=== PATIENT | female | born 1995 | race Caucasian/White ===

== ENCOUNTER 2017-11-07 10:11 | Inpatient (IN) | payer BC, OTHER ==
[~2017-11-07] VITALS: Ht 162.6 cm; Wt 53.1 kg
[~2017-11-07 10:11] MED LIST: ASCO250T5 PO; Baclofen PO; CLON0.1T14 PO; DICY20TA28 PO; DIPH50CA37 PO; FERR325T28 PO; HYDR-3895 PO; Ibuprofen PO; PREG25CA PO
--- NOTE | 2017-11-08 23:30 | NUR ---
Intake Assessment Assessment done at intake office. Patient is alert & oriented x4. Pt is ambulatory with a steady gait. Speech is clear and audible. Pt presented with flushed skin, anxious/irritable mood, fine tremors, clammy/moist skin & reports very mild headache. Pt appears mildly intoxicated. Vitals taken immediately B/P 119/70, CO 73, RR 18, Temp 96.3, O2Sat 98%. She reports that she is here to detox off from Alcohol/Xanax/Heroin. Pt reports allergies to Coconut. COWS 4 CIWA 12. Explained to pt unit protocols regarding destruction of any controlled substances brought to facility and handling of all medications. Pt is coherent and is able to sign consent & verbalized understanding. Dr. Torres aware of pt's admission. Will continue admission process when pt arrives in the unit.
[2017-11-08 23:45] VITALS: BP 119/70
[2017-11-08] MEDS ORDERED: MAG HYDROX/AL HYDROX/SIMETH 30 ML LIQUID UDC PO PRN (23:45)
[2017-11-08] MEDS ORDERED: NICOTINE POLACRILEX 4 MG GUM-PK OF TEN BC PRN (23:45)
[2017-11-08] MEDS ORDERED: MIRALAX 17 GM POWD.PACK PO PRN (23:45)
[2017-11-08] MEDS ORDERED: BUPRENORPHINE HCL 2 MG TAB.SUBL SL PRN (23:45)
[2017-11-08] MEDS ORDERED: NICOTINE 14 MG/24HR PATCH TD PRN (23:45)
[2017-11-08] MEDS ORDERED: LOPERAMIDE HCL 2 MG CAPSULE PO PRN ×2 (23:45)
[2017-11-08] MEDS ORDERED: diphenhydrAMINE 50 MG CAPSULE PO PRN (23:45)
[2017-11-08] MEDS ORDERED: THIAMINE HCL 200 MG/2 ML VIAL IM ONE (23:45)
[2017-11-08] MEDS ORDERED: LORAZEPAM 1 MG TABLET PO PRN (23:45)
[2017-11-08] MEDS ORDERED: LORAZEPAM 2 MG/1 ML VIAL IM PRN (23:45)
--- NOTE | 2017-11-08 23:45 | NUR ---
ADMISSION NOTE: Patient is a 22 y.o female admitted at [facility] Unit at approximately 2340pm of 11/08/17 for medically supervised withdrawal from Alcohol/Xanax/Heroin. Body search done and skin check performed, no contraband found. Skin noted noted with trackmarks on bilateral arms. Pt is 5'4" tall and weighs 117 lbs in a standing scale. Pt is cooperative during assessment. Patient is oriented to floor unit and room. Patient follows a regular diet with reported allergies to Coconut. Pt wishes to be full Code. Patient is alert & oriented x4, ambulatory with a steady gait. Speech is clear and audible. Pt presented with flushed skin, anxious/irritable mood, fine tremors, clammy/moist skin & reports very mild headache. Pt is cooperative during interview. No shortness of breath noted. Respiration even & unlabored. Abdomen soft & non-distended. Bowel sounds active in all four quadrants. Last bowel noted was today 11/08/17. Pt denies any nausea/vomiting. No chest pain noted. COWS 4 CIWA 12 noted. Patient noted with past medical history of Anxiety, Depression, Hepatitis C, Asthma, PTSD, & Insomnia. Pt denies any hx of suicide attempt. Pt currently denies SI/HI. Pt was able to provide urine sample for drug screen upon admission and is voiding clear yellow urine with no problems. Substance use: 1. ETOH- Pt has been drinking since 11 years old. Pt reports that she relapsed 6 months ago and started drinking on a daily basis, she reports drinking 1 pint of Vodka/whiskey daily. Pt consumed an unknown amount on the day of admission 11/08/17. 2. Xanax- Pt has been using Xanax since she was 11 years old. Pt reported that she relapsed 6 months ago and started taking on a daily basis, she reports taking 5-10mg of Xanax daily. Pt last consumed 2mg on the day of admission. 3. Heroin- Pt has been using IV Heroin since she was 16 years old. Pt reports that she relapsed 6 months ago and started using IV Heroin on a daily basis, she reports using 1.0-1.5 grams daily. Pt last consumed 0.5grams IV Heroin prior to admission. 4. Marijuana- Pt smokes on a daily basis. Pt reports smoking 1/8th of marijuana. Last consumed an unknown amount on the day of admission. Treatment History: Pt had been to multiple detox treatment (pt unable to recall all of them) -[facility] in [place] -[facility] in [place] -[facility] in [facility] -[facility](September 2016) Patient denies being hospitalized in the last 30 days. Pt longest period of sobriety is 6 months in February-August of 2015. Patient smokes 20 cigarettes daily. Patient refused to get Flu and Pneumonia Vaccine. Explained risk and benefits but still refused. Patient denies having a PCP. Urine drug screen came back positive for Opiates & Cannabinoids. Fall & Seizure precautions are in place. All needs attended & met. Safety precautions are in place. Bed locked in lowest position. Both side rails padded & up. Call light within pt's reach. Will continue to monitor.
[2017-11-09 01:30] LABS: *AMPHETAMINE, URINE NEGATIVE (NEGATIVE); *BARBITURATE, URINE NEGATIVE (NEGATIVE); *CANNABINOID, URINE POSITIVE (NEGATIVE); *COCCAINE, URINE NEGATIVE (NEGATIVE); *OPIATE, URINE POSITIVE (NEGATIVE); *PHENCYCLIDINE SCREEN,URINE NEGATIVE (NEGATIVE)
[2017-11-09 01:34] LABS: *URINE HCG, QUAL NEGATIVE (NEGATIVE)
--- NOTE | 2017-11-09 01:37 | NUR ---
PRN Ativan Patient appears anxious and irritable. Pt noted with fine tremors and reports mild headache. Pt appears restless in bed. Vitals noted WNL. CIWA 12 noted at this time. PRN Ativan 2mg administered as ordered. Will monitor for effectiveness of medication.
--- NOTE | 2017-11-09 02:37 | NUR ---
PRN Reassessment Pt verbalized decreased in anxiety and agitation after medication administration. Pt also reported relief from headache. Pt appears more calm. Safety measures in place. Will continue to monitor patient.
[2017-11-09 04:00] VITALS: BP 103/56
--- NOTE | 2017-11-09 07:10 | NUR ---
End of Shift Note: Pt admitted last night for medically supervised withdrawal form ETOH/Benzo/Opiates. Pt to be started on a 5-day Ativan & and 5-day Subutex taper. Pt is stilla sleep at this time and is easily arousable. Pt received PRN Ativan 2mg @ 0137 for s/s of withdrawal and was effective. Last COWS 4 CIWA 12 noted. Continue to closely monitor signs and symptoms of withdrawal. Vitals noted WNL. Pt slept for a total of 5 hours. Fluid intake: 750 ml. Voided 1x with no bowel movement during my shift. Encourage pt to increase fluid intake for rehydration as tolerated. All needs attended. Safety measures in place. Will endorse to day shift nurse.
--- NOTE | 2017-11-09 07:30 | NUR ---
Start of Shift Notes: Received patient in her room. Awake, alert and verbally responsive. Oriented x 4. Able to make her needs known. Patient states "I feel like shit, I'm so nauseated." Educated patient on her current medication regimen and reassured patient that staff will keep her comfortable as much as possible. Patient was able to be redirected. Encouraged oral fluid intake and encouraged group participation to learn new skills to prevent relapse. Patient is a 22 year old female admitted for opiate and BZO withdrawal who will be placed on a 5-day Subutex and 5-day Ativan taper as ordered. Labs to be drawn. PRN Ativan 2 mg PO given during the night. Last . Slept for 5 hours. Will continue to monitor.
[2017-11-09 08:00] VITALS: BP 141/91
[2017-11-09] MEDS: BUPRENORPHINE HCL 2 MG TAB.SUBL SL SCH ×4 (09:00→23:10)
[2017-11-09] MEDS ORDERED: TUBERCULIN,PURIF.PROT.DERIV. 5 TU/0.1 ML TEST ID ONE (09:00)
[2017-11-09] MEDS: LACTOBACILLUS RHAMNOSUS GG 1 EACH CAPSULE PO SCH ×2 (09:21→20:19)
[2017-11-09] MEDS: METHOCARBAMOL 750 MG TABLET PO PRN ×2 (09:21→20:20)
[2017-11-09] MEDS: DICYCLOMINE HCL 20 MG TABLET PO PRN ×2 (09:21→20:20)
[2017-11-09] MEDS: LORAZEPAM 1 MG TABLET PO SCH ×4 (09:21→20:20)
[2017-11-09] MEDS: ONDANSETRON ODT 4 MG TAB.RAPDIS SL PRN ×2 (09:21→20:20)
[2017-11-09] MEDS: THIAMINE HCL 100 MG TABLET PO SCH (09:21)
[2017-11-09] MEDS: IBUPROFEN 600 MG TABLET PO PRN ×2 (09:21→16:21)
[2017-11-09] MEDS: FOLIC ACID 1 MG TABLET PO SCH (09:21)
[2017-11-09] MEDS: MULTIVITAMINS,THERAPEUTIC TABLET PO SCH (09:21)
[2017-11-09] MEDS: DOXYCYCLINE HYCLATE 100 MG TABLET PO SCH ×2 (09:21→20:20)
[2017-11-09] MEDS: CLONIDINE HCL 0.1 MG TABLET PO PRN ×2 (09:23→20:20)
--- NOTE | 2017-11-09 09:23 | NUR ---
Bentyl 20mg/Clonidine 0.1mg/Motrin 600mg/Robaxin 750 mg PO given: Patient's COWS 14/CIWA 14, patient presented with anxiety/agitation, restless legs, chills, hot flashes, sweating, gross tremors, 78/10 myalgia, nausea and abdominal cramping. Patient was encouraged to take Subutex 4 mg SL as ordered due to her symptoms. Patient states that she was still not ready since she does not want to get sick. Educated patient on the risk and benefits of taking Subutex put patient still refused. Medicated patient with Bentyl/Clonidine/Motrin/Robaxin as ordered. Notified MD and charge nurse of patient's refusal of Subutex. Will encourage to take 1 more time and continue to educate the patient. Will monitor for effectiveness.
--- NOTE | 2017-11-09 10:00 | NUR ---
Subutex 4 mg SL refused: Patient was offered to receive Subutex 4 mg SL as ordered, but patient still refused. COWS 14. Educated patient on the risk and benefits but patient still refused. Notified Dr. Torres. Will monitor.
--- NOTE | 2017-11-09 10:23 | NUR ---
Re-assessment: Zofran/Clonidine/Bentyl/Robaxin and Motrin Patient verbalizes relief from nausea, myalgia PL is now 3/10, and abdominal cramping ceased. BP 125/81. PRN Clonidine, Zofran, Robaxin and Motrin was effective.
[2017-11-09 11:26] LABS: BASOPHILS % (AUTO) 0.8 % (0.0-2.0); EOSINOPHILS # (AUTO) 0.2 K/uL (0.0-0.7); EOSINOPHILS % (AUTO) 3.4 % (0.0-7.0); HEMATOCRIT 40.5 % (31.2-41.9); HEMOGLOBIN 13.4 g/dL (10.9-14.3); LYMPHOCYTES # (AUTO) 1.6 K/uL (20.0-40.0); LYMPHOCYTES % (AUTO) 30.1 % (20.5-51.5); MEAN CORPUSCULAR HEMOGLOBIN 27.6 uug (24.7-32.8); MEAN CORPUSCULAR HGB CONC 33 g/dL (32.3-35.6); MEAN CORPUSCULAR VOLUME 83.3 fL (75.5-95.3); MONOCYTES # (AUTO) 0.5 K/uL (2.0-10.0); MONOCYTES % (AUTO) 9.5 % (0.0-11.0); NEUTROPHILS # (AUTO) 3.1 K/uL (1.8-8.9); NEUTROPHILS % (AUTO) 56.2 % (38.5-71.5); PLATELET COUNT (AUTO) 174 K/uL (179-408); RED BLOOD CELL COUNT(AUTO) 4.86 MIL/uL (3.63-4.92); WHITE BLOOD COUNT (AUTO) 5.5 K/uL (3.8-11.8)
[2017-11-09 11:27] LABS: BILIRUBIN,TOTAL 0.7 mg/dL (0.2-1.0); CREATININE 0.9 mg/dL (0.6-1.3); POTASSIUM 4.3 mmol/L (3.5-5.1); TOTAL PROTEIN, SERUM 6.6 g/dL (6.4-8.2)
[2017-11-09 12:00] VITALS: BP 108/57
--- NOTE | 2017-11-09 13:59 | NUR ---
Subutex 4 mg SL not administered: COWS 12, patient continues to refuse Subutex 4 mg SL at this time. Patient stated "I will let you know when I need it. Don't worry." Patient was reassured not to let herself wait too long to get sicker. All needs met and attended. Will continue to encourage to take. MD Torres made aware.
[2017-11-09 16:00] VITALS: BP 94/49
--- NOTE | 2017-11-09 16:21 | NUR ---
Motrin 600mg PO given: Patient complained of 6/10 pain to her lower legs and lower back related to her withdrawal symptoms. Heat packs offered but refused. Medicated patient with Motrin 600 mg PO as ordered. Will monitor for effectiveness.
--- NOTE | 2017-11-09 17:08 | NUR ---
Therapist prompted client to attend daily group session. Client responded by stating that she would attend if she was feeling well enough to go.
--- NOTE | 2017-11-09 17:21 | NUR ---
Re-assessment: Motrin Per patient, PRN Motrin was effective in reducing patient's lower back and leg pain. PL 3.
--- NOTE | 2017-11-09 17:59 | NUR ---
Subutex 4 mg SL at 1700 not administered: Patient continues to refuse Subutex 4 mg at this time. COWS 14, but patient still refuses to take. Patient continues to refuse and states "I'm still not ready, I'll try to see how I feel later and let you know." Patient was reassured that meds are available as soon as she needs it and continue to encourage patient to take meds. MD aware of patient's refusal to take Subutex. Will monitor closely.
--- NOTE | 2017-11-09 19:15 | NUR ---
Start of Shift Note: Endorsement received from day shift nurse. Received patient alert & oriented to name, place and situation. Patient appears with flat affect, anxious and irritable mood, flushed, teary eyed and diaphoretic. Pt is disheveled and looks unkempt. Room observed to be messy with unfolded clothes on table and bed. Pt presented with sweating, chills, restlessness, 8/10 generalized body aches, stuffy nose, reports nausea/vomiting, moderate headache. Pt is on Ativan taper and is tolerating taper well. Pt still has not started her Subutex taper, per pt she is not ready yet. Last COWS 14 CIWA 12. Pt received PRN Bentyl, Clonidine, Motrin x2, & Zofran during day shift and were effective per report. Encourage to increase fluid intake. Pt educated current plan of care for the night and medication regimen. Will continue to monitor patient.
--- NOTE | 2017-11-09 19:21 | NUR ---
End of Shift Notes: Patient initiated her 5-day Ativan and her 5-day Subutex taper as ordered to manage withdrawal symptoms related to opiate and BZOs. She is tolerating current taper well. No adverse reactions noted. VS monitored closely. No significant abnormalities noted. Withdrawal symptoms were closely monitored. Initial COWS 14/CIWA 14, patient presented with nausea, abdominal cramping, anxiety/agitation, sweats, chills, hot flashes, fatigue. PRN Clonidine, Bentyl, Motrin and Robaxin was given at 0857 with help after 1 hour. At 1621, patient was given Motrin as ordered for lower back and lower leg pain with help after 1 hour. Encouraged to attend group and participate in activities due to self isolation. Consuming 50% for breakfast and lunch and refused dinner meal. Snacks offered and patient has been snacking all day. Encouraged healthy diet while in detox. Patient was unable to participate in group and activities due to her withdrawal symptoms. Last COWS 14/CIWA 12. Refused Subutex 4 mg SL at 0900, 1300 and 1700 due to patient's fear of having precipitated withdrawals. Education was provided at all times to keep patient reassured. All needs met and attended. Call light in reach. Will continue to monitor.
[2017-11-09 20:00] VITALS: BP_SYST 117; BP_DIAS 64; BP_DIAS 76
[2017-11-09] MEDS: GABAPENTIN 300 MG CAPSULE PO SCH (20:20)
--- NOTE | 2017-11-09 20:20 | NUR ---
PRN Administration Patient presented with anxiety, sweating, chills, stomach cramps, reports 7/10 generalized body aches, & nausea with episodes of vomiting. PRN Zofran 4mg SL, Bentyl 20mg, Clonidine 0.1 and Robaxin administered as ordered. Will monitor for effectiveness of medication.
--- NOTE | 2017-11-09 21:00 | NUR ---
Pt requested to take Subutex at a later time. Per pt, she is not ready to take it yet. Pt presented with anxiety, fine tremors, goosebumps, nausea/vomiting, sweating, chills, dilated pupils, restlessness & stomach cramps. COWS 17 noted. Explained to pt benefits of taking Subutex but pt still refused to take it as scheduled. Will continue to monitor patient.
[2017-11-09] MEDS: ONDANSETRON 4 MG/2 ML VIAL IM PRN (21:19)
--- NOTE | 2017-11-09 21:19 | NUR ---
PRN Zofran IM Zofran SL ineffective. Patient noted with another episode of vomiting. PRN Zofran 4mg IM administered as ordered on right deltoid with no adverse reactions noted. Will monitor for effectiveness of medication.
--- NOTE | 2017-11-09 21:20 | NUR ---
PRN Reassessment Pt verbalized decreased in pain from 7/10 to 5/10, relief from stomach cramps & decreased in sweating & chills. Zofran was not effective. Pt still nauseous and noted with another episode of vomiting. Safety measures in place. Will continue to monitor patient.
--- NOTE | 2017-11-09 21:49 | NUR ---
PRN Zofran Reassessment Patient verbalized improved nausea and vomiting ceased after medication administration. Safety measures in place. Encourage pt to increase fluid intake. Will continue to monitor patient.
[2017-11-09 23:10] VITALS: BP 108/63
[2017-11-09] MEDS: HYDROXYZINE PAMOATE 25 MG CAPSULE PO PRN (23:10)
--- NOTE | 2017-11-09 23:10 | NUR ---
PRN Benadryl & Vistaril Patient is anxious and is unable to fall asleep. PRN Benadryl & Vistaril administered as ordered. Will monitor for effectiveness of medication.
[2017-11-09] MEDS ORDERED: QUET100T PO (23:19)
[2017-11-09] MEDS ORDERED: ASPI1TAB2 PO (23:19)
--- NOTE | 2017-11-10 00:10 | NUR ---
PRN Reassessment Pt asleep at this time and appears comfortable. Safety measures in place. Will continue to monitor.
[2017-11-10 04:00] VITALS: BP 89/53
--- NOTE | 2017-11-10 07:06 | NUR ---
End of Shift Note: Pt still asleep at this time but easily arousable. Pt remains alert & oriented x4. Pt on Ativan taper and tolerating well, she started Subutex taper last night with no adverse reactions noted. Pt received PRN Zofran SL, Bentyl, Clonidine, Robaxin, Zofran IM, Benadryl & Vistaril and were effective. Last COWS 11 CIWA 11 noted. Continue to closely monitor signs and symptoms of withdrawal. Vitals noted WNL. Pt slept for a total of 6 hours. Fluid intake: 1592 ml. Voided 1x with no bowel movement during my shift. Encourage pt to increase fluid intake for rehydration as tolerated. All needs attended. Safety measures in place. Will endorse to day shift nurse.
--- NOTE | 2017-11-10 07:14 | NUR ---
Start of Shift Notes: Received patient in her room. Laying in bed with eyes closed. Easily arousable. Alert and verbally responsive. Oriented x 4. Able to make her needs known. Educated patient on her current medication regimen and reassured patient that staff will keep her comfortable as much as possible. Patient was able to be redirected. Encouraged oral fluid intake and encouraged group participation to learn new skills to prevent relapse. Patient is a 22 year old female admitted for opiate and BZO withdrawal who was placed on a 5-day Subutex and 5-day Ativan taper as ordered. Subutex taper was started at HS. PRN Bentyl, Clonidine, Robaxin, Zofran IM and SL, and Benadryl waws given during the night. Slept for 6 hours. Last /. Will continue to monitor.
[2017-11-10 08:00] VITALS: BP 99/68
[2017-11-10] MEDS: ONDANSETRON ODT 4 MG TAB.RAPDIS SL PRN ×2 (08:41→20:18)
[2017-11-10] MEDS: METHOCARBAMOL 750 MG TABLET PO PRN ×2 (08:42→17:14)
[2017-11-10] MEDS: LACTOBACILLUS RHAMNOSUS GG 1 EACH CAPSULE PO SCH ×2 (08:42→20:19)
[2017-11-10] MEDS: LORAZEPAM 1 MG TABLET PO SCH ×3 (08:42→20:19)
[2017-11-10] MEDS: MULTIVITAMINS,THERAPEUTIC TABLET PO SCH (08:42)
--- NOTE | 2017-11-10 08:42 | NUR ---
Bentyl 20 mg PO/Robaxin 750 mg/Zofran 4 mg ODT given: Patient noted with complain of 6/10 stomach cramps, nausea, and myalgia related to s.s of withdrawal. Medicated patient with Bentyl 20 mg PO, Robaxin 750 mg PO and Zofran 4 mg ODT as ordered. Will monitor for effectiveness. COWS 20/CIWA 14. Ativan and Subutex taper given as ordered.
[2017-11-10] MEDS: DICYCLOMINE HCL 20 MG TABLET PO PRN (08:43)
[2017-11-10] MEDS: FOLIC ACID 1 MG TABLET PO SCH (08:43)
[2017-11-10] MEDS: BUPRENORPHINE HCL 2 MG TAB.SUBL SL SCH ×3 (08:43→20:18)
[2017-11-10] MEDS: THIAMINE HCL 100 MG TABLET PO SCH (08:43)
[2017-11-10] MEDS: DOXYCYCLINE HYCLATE 100 MG TABLET PO SCH ×2 (08:43→20:19)
[2017-11-10] MEDS: GABAPENTIN 300 MG CAPSULE PO SCH ×3 (08:43→20:19)
--- NOTE | 2017-11-10 09:42 | NUR ---
Re-assessment: Bentyl/Robaxin/Zofran Per patient, PRN Zofran was effective in relieving nausea. PL from abdominal cramps and myalgia 11/24. PRN Bentyl/Zofran and Robaxin were effective.
[2017-11-10 11:06] LABS: HEPATITIS B SURFACE AG Negative (Negative)
[2017-11-10 12:00] VITALS: BP 105/61
--- NOTE | 2017-11-10 12:08 | NUR ---
Client was prompted to attend group therapy. Client stated she would make an effort to attend.
[2017-11-10] MEDS ORDERED: BUPRENORPHINE HCL 2 MG TAB.SUBL SL PRN (12:15)
[2017-11-10] MEDS: LORAZEPAM 1 MG TABLET PO PRN ×2 (12:37→22:34)
--- NOTE | 2017-11-10 12:37 | NUR ---
Subutex 4 mg SL PRN/Ativan 1 mg PO given: COWS 16/CIWA 12, patient appears very uncomfortable. Noted with restlessness, chills, hot flashes, sweating, anxiety, and agitation. PRN Subutex 4 mg SL given for COWS score 16 and Ativan 1 mg PO PRN given for CIWA 12. Will monitor for effectiveness.
--- NOTE | 2017-11-10 13:07 | NUR ---
Re-assessment: Subutex 4 mg SL COWS 11, relief from runny nose noted, less sweating, less anxiety noted. PRN Subutex effective in reducing patient's withdrawal symptoms.
--- NOTE | 2017-11-10 13:37 | NUR ---
Re-assessment: Ativan 1 mg CIWA 10, less anxiety/agitation, sweats and tremors noted. PRN Ativan 1 mg PO was effective in reducing patient's withdrawal symptoms.
[2017-11-10] MEDS: BACLOFEN 10 MG TABLET PO SCH ×2 (15:10→20:19)
[2017-11-10] MEDS: DICYCLOMINE HCL 20 MG TABLET PO SCH ×2 (15:10→20:19)
[2017-11-10 16:00] VITALS: BP 119/81
[2017-11-10] MEDS: IBUPROFEN 600 MG TABLET PO PRN (17:14)
[2017-11-10] MEDS: ONDANSETRON 4 MG/2 ML VIAL IM PRN (17:14)
--- NOTE | 2017-11-10 17:14 | NUR ---
Zofran 4 mg IM/Robaxin 750mg/Motrin PO given: Patient noted with x 3 episodes of vomiting. No diarrhea noted. Also noted with complain of 6/10 pain to lower legs. Non-pharmacological interventions provided but ineffective. Medicated patient with Zofran 4 mg IM, Robaxin 750 mg PO and Motrin as ordered. Will monitor for effectiveness.
--- NOTE | 2017-11-10 17:44 | NUR ---
Re-assessment: Kayla NAJERA/MD Communication Patient continues to complain of nausea and with x 2 episode of emesis after drinking water. Reported to charge nurse and charge nurse notified Dr. Torres. Awaiting for reply.
--- NOTE | 2017-11-10 18:00 | NUR ---
New Orders: New orders received from MD. Patient will be started on IV D5 1/2 NS at 125 cc/hr x 8 hours hydration and IV Protonix as ordered.
--- NOTE | 2017-11-10 18:45 | NUR ---
IV line insertion: IV line to patient's right upper arm obtained by Roderick from the ER. Patient tolerated procedure well. IV line inserted utilizing 23g via aseptic technique. Tourniquet released and secured IV site with tape. IV site to right upper arm patent and intact. Flushing well with good blood return.
[2017-11-10] MEDS: PANTOPRAZOLE SODIUM 40 MG VIAL IV SCH (18:59)
--- NOTE | 2017-11-10 19:06 | NUR ---
End of Shift Notes: Patient initiated her 5-day Ativan and her 5-day Subutex taper as ordered to manage withdrawal symptoms related to opiate and BZOs. She is tolerating current taper well. No adverse reactions noted. VS monitored closely. No significant abnormalities noted. Withdrawal symptoms were closely monitored. Initial COWS 20/CIWA 14, patient presented with nausea, abdominal cramping, anxiety/agitation, sweats, chills, hot flashes, fatigue. PRN Bentyl, Robaxin and Zofran was given at 0842 with help after 1 hour. Medicated patient with PRN Subutex 4 mg and Ativan 1 mg PO at 1237 for breakthrough withdraweal symptoms with help. At 1714, patient was noted with x [address] episodes of vomiting [address] PL 6/10 to lower legs, medicated patient with Zofran 4 mg IM, Robaxin and Motrin as ordered. Meds adjusted by MD Rahman today. IV line to patient's right upper arm inserted. Patient will be started on D5 1/2 NS at 125cc/hr x 8 hours for hydration. Appetite is poor, consuming 25% of meals and unable to tolerate PO fluids at times. Snacks offered and provided. Encouraged to attend group and participate in activities due to self isolation. . Encouraged healthy diet while in detox. Patient was unable to participate in group and activities due to her withdrawal symptoms. Last COWS /CIWA 14. Per patient, Ativan and Subutex has been effective in reducing her withdrawal symptoms. All needs met and attended. Call light in reach. Will continue to monitor.
[2017-11-10] MEDS: IV D5 1/2 NS 1000 ML 1,000 ML IV PRN (19:07)
--- NOTE | 2017-11-10 19:15 | NUR ---
Start of Shift Note: Endorsement received from day shift nurse. Received patient alert & oriented to name, place and situation. Patient continues to appear with a flat affect, flushed, & anxious and irritable mood. Pt started on IV hydration of D5 1/2 NS @ 125 cc/hr. Pt continues to have nausea but no episode of vomiting noted at this time. Pt is disheveled and looks unkempt. Room observed to be messy with unfolded clothes on table and bed. Pt presented with sweating, chills, restlessness, 8/10 generalized body aches, stomach cramps, stuffy nose, & moderate headache. Pt is on Ativan taper & Subutex taper and is tolerating taper well. No adverse reactions noted. Last COWS 12 CIWA 14. Pt received PRN Bentyl, Robaxin x2, Zofran x2, Ativan, Subutex & Motrin during day shift and were effective per report. Pt educated current plan of care for the night and medication regimen. Will continue to monitor patient.
[2017-11-10 20:00] VITALS: BP 114/67
[2017-11-10] MEDS: ACETAMINOPHEN 325 MG TABLET PO PRN (20:19)
--- NOTE | 2017-11-10 20:19 | NUR ---
PRN Zofran & Tylenol Patient complained of moderate headache and nausea. No episode of vomiting noted at this time. PRN Zofran SL & Tylenol administered as ordered. Will monitor for effectiveness of medication.
[2017-11-10] MEDS: QUETIAPINE FUMARATE 100 MG TABLET PO SCH (20:20)
--- NOTE | 2017-11-10 21:19 | NUR ---
PRN Reassessment Patient verbalized relief from headache and improved nausea after medication administration. Safety measures in place. Will continue to monitor patient.
--- NOTE | 2017-11-10 22:34 | NUR ---
PRN Ativan Patient presented with anxious/irritable mood, fine tremors, moist/clammy skin and nausea. CIWA 11 noted at this time. Vitals WNL. PRN Ativan administered as ordered. Will monitor for effectiveness of medication.
--- NOTE | 2017-11-10 23:34 | NUR ---
PRN Reassessment Patient verbalized decreased in anxiety & agitation. Patient more calm & comfortable in bed. Pt still noted with slight nausea. Safety measures in place. Will continue to monitor patient.
[2017-11-11] VITALS (7 sets, daily range): BP systolic 90–128; BP diastolic 58–79
[2017-11-11] MEDS: IV D5 1/2 NS 1000 ML 1,000 ML IV PRN (04:53)
--- NOTE | 2017-11-11 07:02 | NUR ---
End of Shift Note: Pt still asleep at this time but easily arousable. Pt remains alert & oriented x4. Pt on Ativan & Subutex taper and tolerating well. Pt continues on IV hydartion D5 1/2 NS @ 125 cc/hr. Pt still noted with intermittent nausea with no episode of vomiting noted. Pt received PRN Zofran SL for nausea, Tylenol for headache and Ativan for increased anxiety and were effective. Last COWS 10 CIWA 11 noted. Continue to closely monitor signs and symptoms of withdrawal. Vitals noted WNL. Pt slept for a total of 6 hours. Fluid intake: 1092 ml. Voided 1x with no bowel movement during my shift. All needs attended. Safety measures in place. Will endorse to day shift nurse.
--- NOTE | 2017-11-11 07:36 | NUR ---
Start of shift- Pt admitted for opiate and ETOH dependence. PMH- Hep C+, anxiety, depression, PTSD, asthma and insomnia. Pt asleep at this time but easily arousable to name. Pt on 5 day Ativan & Subutex taper and tolerating well. Pt continues on IV hydration D5 1/2 NS @ 125 cc/hr. IV #22 foreign right upper arm. Pt still noted with intermittent nausea with no episode of vomiting noted. Last night Pt received PRN Zofran SL for nausea, Tylenol for headache and Ativan for increased anxiety and were effective. At 2330 last COWS 10 CIWA 11 noted. Pt slept for a total of 6 hours. Pt reports FULL CODE, allergy to coconut. All safety measures in place. Will continue to closely monitor signs and symptoms of withdrawal.
[2017-11-11] MEDS ORDERED: LORAZEPAM 1 MG TABLET PO SCH ×2 (09:00→21:00)
[2017-11-11] MEDS ORDERED: BUPRENORPHINE HCL 2 MG TAB.SUBL SL SCH (09:00)
[2017-11-11] MEDS: PANTOPRAZOLE SODIUM 40 MG VIAL IV SCH (09:25)
[2017-11-11] MEDS: GABAPENTIN 300 MG CAPSULE PO SCH ×3 (09:25→20:52)
[2017-11-11] MEDS: DICYCLOMINE HCL 20 MG TABLET PO SCH ×3 (09:25→20:52)
[2017-11-11] MEDS: THIAMINE HCL 100 MG TABLET PO SCH (09:25)
[2017-11-11] MEDS: FOLIC ACID 1 MG TABLET PO SCH (09:25)
[2017-11-11] MEDS: MULTIVITAMINS,THERAPEUTIC TABLET PO SCH (09:25)
[2017-11-11] MEDS: BACLOFEN 10 MG TABLET PO SCH (09:26)
[2017-11-11] MEDS: DOXYCYCLINE HYCLATE 100 MG TABLET PO SCH ×2 (09:26→20:52)
[2017-11-11] MEDS: LACTOBACILLUS RHAMNOSUS GG 1 EACH CAPSULE PO SCH ×2 (09:26→20:52)
[2017-11-11 09:58] LABS: BASOPHILS # (AUTO) 0.1 K/uL (0.0-8.0); EOSINOPHILS # (AUTO) 0.1 K/uL (0.0-0.7); EOSINOPHILS % (AUTO) 1.8 % (0.0-7.0); HEMATOCRIT 40.5 % (31.2-41.9); HEMOGLOBIN 13.4 g/dL (10.9-14.3); LYMPHOCYTES # (AUTO) 2.3 K/uL (20.0-40.0); LYMPHOCYTES % (AUTO) 31.6 % (20.5-51.5); MEAN CORPUSCULAR HEMOGLOBIN 27.8 uug (24.7-32.8); MEAN CORPUSCULAR HGB CONC 33 g/dL (32.3-35.6); MEAN CORPUSCULAR VOLUME 83.8 fL (75.5-95.3); MONOCYTES # (AUTO) 0.8 K/uL (2.0-10.0); MONOCYTES % (AUTO) 11.5 % (0.0-11.0); NEUTROPHILS # (AUTO) 3.9 K/uL (1.8-8.9); NEUTROPHILS % (AUTO) 54.1 % (38.5-71.5); PLATELET COUNT (AUTO) 151 K/uL (179-408); RED BLOOD CELL COUNT(AUTO) 4.83 MIL/uL (3.63-4.92)
[2017-11-11 10:17] LABS: WHITE BLOOD COUNT (AUTO) 7.2 K/uL (3.8-11.8)
[2017-11-11 10:37] LABS: CREATININE 0.8 mg/dL (0.6-1.3); MAGNESIUM 1.7 mg/dL (1.8-2.4); PHOSPHOROUS 4.5 mg/dL (2.5-4.9); POTASSIUM 3.9 mmol/L (3.5-5.1)
[2017-11-11] MEDS ORDERED: MAGNESIUM OXIDE 400 MG TABLET PO ONE (11:00)
[2017-11-11] MEDS: ONDANSETRON ODT 4 MG TAB.RAPDIS SL PRN (11:48)
[2017-11-11] MEDS: HYDROXYZINE PAMOATE 25 MG CAPSULE PO PRN (11:52)
--- NOTE | 2017-11-11 11:53 | NUR ---
PRN Zofran 4 mg fast tabs for nausea. PRN Vistaril 50 mg po for anxiety
[2017-11-11] MEDS: LORAZEPAM 1 MG TABLET PO SCH ×2 (12:52→16:33)
--- NOTE | 2017-11-11 12:54 | NUR ---
Reassess Zofran, pt reports nausea unchanged. Able to eat cereal with no emesis. Reassess Vistaril- pt reports anxiety improved a little.
[2017-11-11] MEDS: BACLOFEN 20 MG TABLET PO SCH ×2 (14:01→20:52)
[2017-11-11] MEDS: BUPRENORPHINE HCL 2 MG TAB.SUBL SL SCH ×2 (14:01→20:51)
[2017-11-11] MEDS: ONDANSETRON 4 MG/2 ML VIAL IM PRN (14:52)
--- NOTE | 2017-11-11 14:56 | NUR ---
PRN Zofran 4 mg IM, pt c/o nausea and had emesis X2 in toilet.
--- NOTE | 2017-11-11 15:22 | NUR ---
Reassess Zofran- pt has no more emesis but still c/o nausea.
[2017-11-11] MEDS: IBUPROFEN 600 MG TABLET PO PRN (15:28)
--- NOTE | 2017-11-11 15:28 | NUR ---
PRN Ibuprofen 600 mg PO for pain. Pt c/o chest pain at sternum #6/10 radiates under right breast. Called and notified Dr. Torres. OK to give Ibuprofen and he will order ECG. Pt VSS, denies c/o SOB.
--- NOTE | 2017-11-11 16:28 | NUR ---
Reassess -pain unchanged still #6/10. ECG performed normal sinus rhythm. Dr. Torres at bedside, evaluated pt and asked RN to administer Maalox PRN.
--- NOTE | 2017-11-11 18:43 | NUR ---
End of shift- Pt admitted for opiate, benzo and ETOH dependence. PMH Hep C+, anxiety, depression, PTSD, asthma and insomnia. Pt on 5 day Ativan & Subutex taper. Pt continues on IV hydration D5 1/2 NS @ 125 cc/hr. IV #22 gauge right upper arm, patent and no s/s infiltration. Pt still c/o intermittent nausea with one episode of vomiting. Pt administered PRN Zofran per MD orders. ECG performed for sternum and right breast pain, result normal sinus rhythm. Dr. Torres notified. TB test read and is negative. Magnesium level 1.7, administered Magnesium 800mg per MD orders. Pt visible on the unit and participated in group therapy X1. At 1600 last COWS 10 CIWA 12. Adequate PO fluid intake 1500 , IV fluid intake 1375, VOID x 4, BM X 1. Pt reports FULL CODE, allergy to coconut. All safety measures in place. Will endorse to oncoming shift.
--- NOTE | 2017-11-11 20:00 | NUR ---
Start of Shift Pt is a 22 year old female admitted for Opiate and ETOH withdrawal, placed on 5 day Ativan and 5 day Subutex taper. Upon assessment, pt presents in room, is anxious and irritable, skin is flushed/clammy, reports body aches, runny nose/teary eyes, reports feeling nausea, fatigue with sweats, abdominal cramping, poor concentration. IV 22 gauge on right upper arm, D5 1/2 NS @ 125 cc/hr. Medications due, safety measures in place, will continue to monitor.
[2017-11-11] MEDS: QUETIAPINE FUMARATE 100 MG TABLET PO SCH (20:52)
[2017-11-12] VITALS: BP 128/68
[2017-11-12] MEDS: IV D5 1/2 NS 1000 ML 1,000 ML IV PRN (01:48)
[2017-11-12 04:00] VITALS: BP 104/72
--- NOTE | 2017-11-12 04:00 | NUR ---
CIWA/COWS deferred d/t pt sleeping, to assess while pt is awake as ordered. BP 104/72, Pulse 69, resp 16, SpO2 99% RA, temp 98.[address], will continue to monitor.
--- NOTE | 2017-11-12 07:00 | NUR ---
End of Shift Pt is a 22 year old female admitted for Opiate and ETOH withdrawal, placed on 5 day Ativan and 5 day Subutex taper. During shift, pt presented with anxiety, was irritable, skin flushed/clammy, reported body aches, runny nose/teary eyes, reported feeling nausea, fatigue with sweats, abdominal cramping, poor concentration scheduled taper medications administered. Pt redirected and educated on treatment plan, pt educated on positive coping mechanisms. Latest CIWA 11 and COWS 9. IV 22 gauge on right upper arm, D5 1/2 NS @ 125 cc/hr hung at 0148. No vomiting episode during shift. Pt slept for 7 hours, intake of 500 ml PO, voids x1 and stool x0. Safety measures in place, call light within reach, side rails up x2, bed locked and in low position. Endorsed to day shift nurse.
--- NOTE | 2017-11-12 07:15 | NUR ---
START OF TSHIFT PATIENT WAS ADMITTED TO [facility] ON 11/08/17 FOR WITHDRAWAL FROM ALCOHOL, BENZODIAZEPINES AND HEROIN. PATIENT IS ON A 5 DAY ATIVAN/SUBUTEX TAPER. PATIENT IS ASLEEP IN BED AT THIS TIME, BREATHING EVEN AND UNLABORED, CALL LIGHT WITHIN REACH. PATIENT IS RECEIVING D5 1/2 NS @ 125CC HR WITH IV IN RIGHT UPPER ARM FOR REPORTS OF N/V AND INABILITY TO TAKE IN ADEQUATE FLUID. IV PATENT AND RUNNING ORDERED AT THIS TIME. LAST COWS 9 AND CIWA 11 @ 0000. WILL CONTINUE TO FOLLOW MD PLAN OF CARE.
[2017-11-12 08:00] VITALS: BP 95/61
[2017-11-12] MEDS: LORAZEPAM 1 MG TABLET PO SCH ×3 (08:21→20:46)
[2017-11-12] MEDS: LACTOBACILLUS RHAMNOSUS GG 1 EACH CAPSULE PO SCH ×2 (08:21→20:46)
[2017-11-12] MEDS: FOLIC ACID 1 MG TABLET PO SCH (08:21)
[2017-11-12] MEDS: DOXYCYCLINE HYCLATE 100 MG TABLET PO SCH ×2 (08:21→20:46)
[2017-11-12] MEDS: DICYCLOMINE HCL 20 MG TABLET PO SCH ×3 (08:21→20:46)
[2017-11-12] MEDS: THIAMINE HCL 100 MG TABLET PO SCH (08:21)
[2017-11-12] MEDS: GABAPENTIN 300 MG CAPSULE PO SCH ×3 (08:21→20:46)
[2017-11-12] MEDS: BACLOFEN 20 MG TABLET PO SCH ×3 (08:21→20:47)
[2017-11-12] MEDS: MULTIVITAMINS,THERAPEUTIC TABLET PO SCH (08:21)
[2017-11-12] MEDS: BUPRENORPHINE HCL 2 MG TAB.SUBL SL SCH ×3 (08:22→20:47)
[2017-11-12] MEDS ORDERED: FAMOTIDINE 20 MG TABLET PO SCH (09:00)
--- NOTE | 2017-11-12 10:30 | NUR ---
Therapist prompted client about group times. Client stated she would attend all groups today.
[2017-11-12 12:00] VITALS: BP 128/70
[2017-11-12] MEDS: HYDROXYZINE PAMOATE 25 MG CAPSULE PO PRN ×2 (12:14→22:04)
[2017-11-12] MEDS: METHOCARBAMOL 750 MG TABLET PO PRN (12:14)
[2017-11-12] MEDS: ONDANSETRON 4 MG/2 ML VIAL IM PRN ×2 (12:15→20:13)
[2017-11-12] MEDS: CLONIDINE HCL 0.1 MG TABLET PO PRN (12:15)
--- NOTE | 2017-11-12 12:15 | NUR ---
PRN MEDICATION ZOFRAN 4 MG IM GIVEN FOR INTERMITTENT C/O NAUSEA ROBAXIN 750MG PO FOR MUSCLE ACHES VISTARIL 50 MG PO, CLONIDINE 0.1MG PO FOR C/O INCREASED ANXIETY/AGITATION WILL REASSESS
[2017-11-12] MEDS ORDERED: MAGNESIUM OXIDE 400 MG TABLET PO ONE (13:15)
--- NOTE | 2017-11-12 13:15 | NUR ---
PRN REASSESS PATIENT STATES NAUSEA HAS EASED, ROBAXIN EFFECTIVE FOR MUSCLE ACHE , PAIN NOW 3/10, VISTARIL AND CLONIDINE HAS HELPED EASED ANXIETY
[2017-11-12] MEDS: IBUPROFEN 600 MG TABLET PO PRN (14:06)
[2017-11-12] MEDS: ACETAMINOPHEN 325 MG TABLET PO PRN (14:06)
--- NOTE | 2017-11-12 14:10 | NUR ---
prn motrin/tylenol motrin po and tylenol 650mg po given for patient c/o headache 03/26. will reassess
--- NOTE | 2017-11-12 15:08 | NUR ---
PRN REASSESS PATIENT STATES MOTRIN/TYLENOL WAS EFFECTIVE FOR HEADACHE, PAIN LEVEL NOW 2/10, WILL CONTINUE TO MONITOR.
[2017-11-12 16:00] VITALS: BP 91/52
[2017-11-12] MEDS: FAMOTIDINE 20 MG TABLET PO SCH (17:26)
--- NOTE | 2017-11-12 18:45 | NUR ---
END OF SHIFT : PATIENT WAS ADMITTED TO [facility] ON 11/08/17 FOR WITHDRAWAL FROM ALCOHOL, BENZODIAZEPINES AND HEROIN. PATIENT IS ON A 5 DAY ATIVAN/SUBUTEX TAPER. PATIENT IS ASLEEP IN BED AT THIS TIME, BREATHING EVEN AND UNLABORED, CALL LIGHT WITHIN REACH. PATIENT IS EASILY OVERWHELMED, HAS POOR INSIGHT INTO HER RECOVERY, TREATMENT AND FUTURE PLANS. SALINE LOCK IN RIGHT UPPER ARM FOR REPORTS OF N/V AND INABILITY TO TAKE IN ADEQUATE FLUID. NO NAUSEA TODAY AFTER 4MG IM ZOFRAN @ 1215. PRN MEDICATIONS GIVEN THIS SHIFT: ZOFRAN 4 MG IM, CLONIDINE, ROBAXIN, VISTARIL, TYLENOL AND MOTRIN. LAST COWS 9 AND CIWA 8 @ 1600. WILL CONTINUE TO FOLLOW MD PLAN OF CARE.
[2017-11-12 20:00] VITALS: BP 107/60
--- NOTE | 2017-11-12 20:00 | NUR ---
START OF SHIFT NOTE RECEIVED REPORT FROM DAY SHIFT NURSE. PATIENT IS 22 YEAR OLD FEMALE ADMITTED FOR OPIATE/BENZO/ETOH WITHDRAWAL. PATIENT IS ON 5 DAY SUBUTEX AND 5 DAY ATIVAN TAPER. PATIENT WITH HEPLOCK ON RIGHT UPPER ARM . PATIENT WAS GIVEN PRN ZOFRAN IM, CLONIDINE, ROBAXIN, VISTARIL, MOTRIN AND TYLENOL. LAST COWS 9 AND CIWA 8. RECEIVED PATIENT IN THE ROOM. PATIENT DISHEVELED, GARBAGE AROUND ROOM, SAD, REPORTS RESTLESS LEGS AND BACK PAIN /10. SHE STATES SHE VOMITED AFTER WAKING UP. SAFETY MEASURES IN PLACE. CALL LIGHT IN REACH. WILL CONTINUE TO MONITOR
--- NOTE | 2017-11-12 20:13 | NUR ---
PRN ZOFRAN IM ADMINISTRATION PATIENT C/O NAUSEA WITH EMESIS X 1. WILL MONITOR FOR EFFECTIVENESS
--- NOTE | 2017-11-12 20:43 | NUR ---
PRN ZOFRAN IM RE-ASSESSMENT PATIENT STATES ZOFRAN HELPFUL, NAUSEA AND VOMITING CEASED. WILL CONTINUE TO MONITOR
[2017-11-12] MEDS: QUETIAPINE FUMARATE 100 MG TABLET PO SCH (20:47)
[2017-11-12] MEDS: ONDANSETRON ODT 4 MG TAB.RAPDIS SL PRN (22:04)
--- NOTE | 2017-11-12 22:04 | NUR ---
PRN VISTARIL AND ZOFRAN SL ADMINISTRATION PATIENT C/O ANXIETY AND VOMITING X 1. WILL MONITOR FOR EFFECTIVENESS
--- NOTE | 2017-11-12 22:34 | NUR ---
PRN DAYANNA CRAIG RE-ASSESSMENT PATENT STATES DAYANNA HELPFUL. NAUSEA AND VOMITING CEASED. WILL CONTINUE TO MONITOR
--- NOTE | 2017-11-12 23:04 | NUR ---
PRN VISTARIL RE-ASSESSMENT PATIENT STATES VISTARIL HELPFUL, PATIENT LESS ANXIOUS. WILL CONTINUE TO MONITOR
[2017-11-13] VITALS: BP 113/71
[2017-11-13] MEDS: CLONIDINE HCL 0.1 MG TABLET PO PRN ×3 (00:13→18:24)
[2017-11-13] MEDS: ACETAMINOPHEN 325 MG TABLET PO PRN (00:13)
--- NOTE | 2017-11-13 00:13 | NUR ---
PRN CATAPRES AND TYLENOL ADMINISTRATION PATIENT STILL C/O ANXIETY AND HEADACHE 01/24.RELAXATION TECHNIQUE PROVIDED. WILL MONITOR FOR EFFECTIVENESS
--- NOTE | 2017-11-13 01:13 | NUR ---
PRN CATAPRES AND TYLENOL RE-ASSESSMENT PATIENT IN BED WITH EYES CLOSED.NO FACIAL GRIMACING. RESPIRATION EVEN AND UNLABORED. WILL CONTINUE TO MONITOR
[2017-11-13] MEDS: ONDANSETRON 4 MG/2 ML VIAL IM PRN (03:57)
--- NOTE | 2017-11-13 03:57 | NUR ---
PRN ZOFRAN IM ADMINISTRATION PATIENT C/O NAUSEA WITH EMESIS . WILL MONITOR FOR EFFECTIVENESS
[2017-11-13 04:00] VITALS: BP 94/58
--- NOTE | 2017-11-13 04:27 | NUR ---
PRN ZOFRAN IM RE-ASSESSMENT PATIENT STATES ZOFRAN HELPFUL. N/V CEASED. WILL CONTINUE TO MONITOR
--- NOTE | 2017-11-13 07:24 | NUR ---
END OF SHIFT NOTE PATIENT SLEPT 4 HOURS. FLUID INTAKE 710 ML. VOIDED X 2. NO BM. MONITORED THROUGHOUT SHIFT. PATIENT WAS ANXIOUS AND WAS NAUSEATED AND VOMITED X 3. PATIENT WAS GIVEN PRN ZOFRAN IM X 2, ZOFRAN SL , CATAPRES , TYLENOL AND VISTARIL. LAST COWS 3 AND CIWA 2 AT [address] AM[address] MEAS[address] IN PL[address]. CALL LIGHT IN REACH. WILL CONTINUE TO MONITOR
--- NOTE | 2017-11-13 07:30 | NUR ---
START OF SHIFT RECEIVED PT A/OX4, RESPIRATIONS EVEN AND UNLABORED. PT IS SOFT SPOKEN, APPEARS DEPRESSED, AND ANXIOUS. PT C/O HAVING NAUSEA, BACK ACHE, STOMACH CRAMPS AND ANXIETY. PT HAS AN 22G IV ACCESS ON R UPPER ARM. PT HAS AN ABCESS ON THE R ARM. ENCOURAGED PT TO INCREASE FLUIDS WHEN NAUSEA SUBSIDES TO PROMOTE HYDRATION. SIDE RAILS UPX2, BED IS IN LOWEST POSITION. CALL LIGHT IS WITHIN REACH. ALL SAFETY MEASURES IN PLACE. WILL CONTINUE TO MONITOR. Addendum: 11/13/17 at 0842 by RODERICK HUNTER RN PT REPORTS VOMITING X3 TIMES LAST NIGHT; STATES, "I AM UNABLE TO KEEP ANYTHING DOWN."
[2017-11-13 08:00] VITALS: BP 103/61
[2017-11-13] MEDS: DICYCLOMINE HCL 20 MG TABLET PO SCH ×3 (08:28→21:02)
[2017-11-13] MEDS: LORAZEPAM 1 MG TABLET PO SCH ×2 (08:28→21:02)
[2017-11-13] MEDS: GABAPENTIN 300 MG CAPSULE PO SCH ×3 (08:28→21:02)
[2017-11-13] MEDS: MULTIVITAMINS,THERAPEUTIC TABLET PO SCH (08:29)
[2017-11-13] MEDS: FOLIC ACID 1 MG TABLET PO SCH (08:29)
[2017-11-13] MEDS: FAMOTIDINE 20 MG TABLET PO SCH ×2 (08:29→16:59)
[2017-11-13] MEDS: ONDANSETRON ODT 4 MG TAB.RAPDIS SL PRN (08:29)
[2017-11-13] MEDS: BUPRENORPHINE HCL 2 MG TAB.SUBL SL SCH ×2 (08:29→21:01)
[2017-11-13] MEDS: LACTOBACILLUS RHAMNOSUS GG 1 EACH CAPSULE PO SCH ×2 (08:29→21:01)
[2017-11-13] MEDS: BACLOFEN 20 MG TABLET PO SCH ×3 (08:29→21:02)
[2017-11-13] MEDS: THIAMINE HCL 100 MG TABLET PO SCH (08:30)
[2017-11-13] MEDS: DOXYCYCLINE HYCLATE 100 MG TABLET PO SCH ×2 (08:30→21:02)
[2017-11-13] MEDS: LIDOCAINE 5% PATCH TD SCH (08:30)
--- NOTE | 2017-11-13 08:30 | NUR ---
PRN PT C/O NAUSEA AND ZOFRAN 4 MG SL GIVEN. WILL MONITOR FOR EFFECTIVENESS.
[2017-11-13 09:23] LABS: CREATININE 0.8 mg/dL (0.6-1.3); MAGNESIUM 2.1 mg/dL (1.8-2.4)
--- NOTE | 2017-11-13 09:30 | NUR ---
REASSESSMENT PT REPORTS MED EFFECTIVE BUT PT STATES WHEN SHE TRIES TO EAT OR DRINK, SHE GET NAUSEATED AGAIN. WILL CONTINUE TO MONITOR.
[2017-11-13 12:00] VITALS: BP 115/72
--- NOTE | 2017-11-13 12:14 | NUR ---
PRN CLONIDINE 0.1 MG PO PRN FOR PT C/O SWEATING, CHILLS, ANXIETY AND AGITATION. WILL MONITOR FOR EFFECTIVENESS.
--- NOTE | 2017-11-13 13:14 | NUR ---
REASSESSMENT PT REPORTED MED WAS EFFECTIVE BUT PT STATES, "IT DOESN'T LAST THAT LONG." WILL CONTINUE TO MONITOR.
[2017-11-13] MEDS ORDERED: SCOPOLAMINE HYDROBROMIDE 1.5 MG PATCH TD SCH (13:58)
[2017-11-13] MEDS: HYDROXYZINE PAMOATE 25 MG CAPSULE PO SCH ×2 (14:33→21:01)
[2017-11-13] MEDS: IV NS 1000 ML 1,000 ML IV PRN (14:34)
[2017-11-13] MEDS: IBUPROFEN 600 MG TABLET PO PRN (15:40)
[2017-11-13 16:00] VITALS: BP 111/65
[2017-11-13] MEDS: QUETIAPINE FUMARATE 25 MG TABLET PO PRN (16:59)
--- NOTE | 2017-11-13 17:00 | NUR ---
PRN PT IS HIGHLY AGITATED, ANXIOUS, RESTLESS. PT REMAINS UPSET AND CRYING. SEROQUEL 25 MG PO PRN GIVEN. WILL MONITOR FOR EFFECTIVENESS.
--- NOTE | 2017-11-13 18:00 | NUR ---
REASSESSMENT PT APPEARS CALM WITH DECREASED RESTLESSNESS AND AGITATION. WILL CONTINUE TO MONITOR.
[2017-11-13] MEDS: METHOCARBAMOL 750 MG TABLET PO PRN (18:24)
--- NOTE | 2017-11-13 18:24 | NUR ---
PRN CLONIDINE 0.1 MG PO PRN GIVEN FOR SWEATING, CHILLS, ANXIETY, AND AGITATION. WILL MONITOR FOR EFFECTIVENESS. Addendum: 11/13/17 at 1836 by RODERICK HUNTER RN ROBAXIN 750 MG PO PRN GIVEN FOR MUSCLE ACHES.
--- NOTE | 2017-11-13 18:52 | NUR ---
END OF SHIFT LAST COWS 8, CIWA 12. 22G IV ON R FA RUNNING NS 125 MG/HR. PT C/O NAUSEA THROUGHOUT THE DAY. TRANSDERMAL SCOP-PATCH FOR NAUSEA ORDERED AND GIVEN. PT WAS UNABLE TO TOLERATE MEALS D/T NAUSEA. PT C/O OF INCREASED ANXIETY, AGITATION AND S/S OF W/D THROUGHOUT THE DAY. PT WAS SEEN CRYING STATED, I DONT FEEL WELL. SEROQUEL 25 MG PO PRN Q4H FOR PSYCHOSIS/AGITATION ORDERED AND GIVEN. ENCOURAGED PT TO CONTINUE TO ATTEND GROUPS AND PARTICIPATE IN ALL ACTIVITIES TO PROMOTE COPING SKILLS. PT WAS GIVEN CLONIDINE, ZOFRAN, SEROQUEL, ROBAXIN, AND CLONIDINE PRNS DURING SHIFT. ALL SAFETY MEASURES IN PLACE. WILL GIVE ALL PERTINENT INFO AND ENDORSEMENT TO ASSOCIATE ACCOUNT MANAGER NURSE.
--- NOTE | 2017-11-13 18:52 | NUR ---
START OF SHIFT NOTE: 22 year old female presented for Benzodiazepines/Xanax, ETOH/Whiskey, Vodka, and Opioid/Heroin withdrawal. She is continues 5 day Ativan and 5 Day Subutex taper, which tolerated well. Patient is alert and oriented x4, resting on the bed. Patient is worry and sad, with uncombed hair, and poor eye contact. COWS=8, CIWA=12 @1600 per day shift report. Patient presented anxious, agitation, nausea, tremors, restlessness, nervousness, sweats, severe abdominal pain, nasal congestion, and fatigue. IV started by day shift nurse with 22 G. IV site on Right upper forearm intact and patent, flashed with NS.IVF running with NS @125 ml/hr,as ordered. PRN Zofran 4 mg SL given for nausea @0830, PRN Clonidine 0.1 mg 1 tab PO given for anxiety @1214 and @1824, and PRN Seroquel 25 mg 1 tab PO administrated PO for anxiety @1700, were effective, per day shift nurse report. Patient encouraged to express her feelings. Encouraged to fluids intake as tolerated. All needs met. Safety measures in place: Call light within reach, bed is locked and in lowest position, padded bed rails up bilaterally. Patient endorsed by outgoing day shift nurse. Report received. Will continue to monitor closely.
[2017-11-13 20:00] VITALS: BP 112/63
[2017-11-13] MEDS ORDERED: HYDROXYZINE PAMOATE 25 MG CAPSULE PO PRN (21:00)
[2017-11-13] MEDS: QUETIAPINE FUMARATE 100 MG TABLET PO SCH (21:01)
[2017-11-14] VITALS: BP 92/55
[2017-11-14] MEDS: IV NS 1000 ML 1,000 ML IV PRN (00:30)
[2017-11-14] MEDS: HYDROXYZINE PAMOATE 25 MG CAPSULE PO SCH ×4 (02:11→20:45)
[2017-11-14 04:00] VITALS: BP 95/58
--- NOTE | 2017-11-14 06:54 | NUR ---
END OF SHIFT NOTE Patient continues 5 day Ativan and 5 Day Subutex taper, which tolerated well. She is remains compliant with treatment, medications, and diet regime. Patient is alert and oriented x4. Patient noted anxious, agitated, easily overwhelmed with poor eye contact. IV site with 22 G on Right upper forearm flashed with NS, is intact and patent. IVF /Bag #2 running with NS 1,000 ml @125 ml/hr Q8h for hydration, as ordered. No PRN Medications given last siene maker. COWS=10,CIWA=10 @20:00, COWS=11,CIWA=11@0000. Last COWS=7, CIWA=7 @0400. Patient presented with anxiety, agitation, irritability, fatigue, nervousness, body aches, stomach cramps, sweating, and restlessness. Safe and calm environment with minimized noises was provided. Patient slept 9 hours, intake 1,950ml, voided x3. All needs met. Safety measures in the place: Call light within reach, bed in the lowest position and locked, padded rails up x2. Patient endorsed to day shift nurse, report given. Will continue to monitor closely.
--- NOTE | 2017-11-14 07:52 | NUR ---
Start of shift note; Received report from night nurse. Patient is a 22 year old female admitted on 11/08/17 for ETOH / Benzodiazepine/Opiate withdrawals. Patient appears agitated, anxious, complaining of nausea, stomach cramps, muscle aches, patient is emotional, patient's room appears cluttered. Patient is currently on IV fluids NS runs at 125mg/HR per MD order, IV site is on BETSY 22G no s/s of site irritation. Patient's last COWS is 7 ands last CIWA is 7 per endorsement. Educated patient regarding the importance of compliance to treatment and medication regime, verbalized understanding. All safety measures secured. Will continue to monitor patient.
[2017-11-14 08:00] VITALS: BP 99/50
[2017-11-14] MEDS: FAMOTIDINE 20 MG TABLET PO SCH ×2 (08:33→16:27)
[2017-11-14] MEDS: LACTOBACILLUS RHAMNOSUS GG 1 EACH CAPSULE PO SCH ×2 (08:34→20:45)
[2017-11-14] MEDS: DICYCLOMINE HCL 20 MG TABLET PO SCH ×3 (08:35→20:46)
[2017-11-14] MEDS: FOLIC ACID 1 MG TABLET PO SCH (08:35)
[2017-11-14] MEDS: MULTIVITAMINS,THERAPEUTIC TABLET PO SCH (08:35)
[2017-11-14] MEDS: THIAMINE HCL 100 MG TABLET PO SCH (08:35)
[2017-11-14] MEDS: BACLOFEN 20 MG TABLET PO SCH ×3 (08:35→20:46)
[2017-11-14] MEDS: GABAPENTIN 300 MG CAPSULE PO SCH ×3 (08:36→20:46)
[2017-11-14] MEDS: LIDOCAINE 5% PATCH TD SCH (08:36)
[2017-11-14] MEDS: DOXYCYCLINE HYCLATE 100 MG TABLET PO SCH ×2 (08:39→20:46)
[2017-11-14] MEDS: QUETIAPINE FUMARATE 25 MG TABLET PO PRN ×3 (08:43→22:33)
[2017-11-14] MEDS: ONDANSETRON 4 MG/2 ML VIAL IM PRN ×2 (08:43→09:33)
--- NOTE | 2017-11-14 08:43 | NUR ---
Zofran 4mg IM to right buttock for c/o nausea Seroquel 25mg PO Q4H PRN given for c/o agitation
[2017-11-14] MEDS ORDERED: BUPRENORPHINE HCL 2 MG TAB.SUBL SL SCH (09:00)
[2017-11-14] MEDS ORDERED: LORAZEPAM 1 MG TABLET PO SCH (09:00)
--- NOTE | 2017-11-14 09:11 | NUR ---
Pt c/o "dry mouth", refused antibiotic Vibramycin 100mg PO for BETSY abcess. Educated on need to finish abx regimen as prescribed, soda requested for dry mouth
--- NOTE | 2017-11-14 09:13 | NUR ---
Reassessment for Zofran 4mg IM given 0843, Pt reports "no nausea" Reassessment for Seroquel 25mg PO given 0843, Pt reports/presents with decreased agitation
--- NOTE | 2017-11-14 09:15 | NUR ---
Therapist prompted client about group times. Client stated she would attend all groups today.
[2017-11-14 12:00] VITALS: BP 95/68
--- NOTE | 2017-11-14 12:00 | NUR ---
NS IVF at 125ml/hr completed with no S/S's infiltration, RFA PIV saline locked and will f/u with MD as to status of saline lock. Pt able to eat solid food and drink liquids
--- NOTE | 2017-11-14 14:25 | NUR ---
Pt request Seroquel 25mg PO replacement for Vistoril for anxiety/agitation.
[2017-11-14] MEDS: KETOROLAC TROMETHAMINE 30 MG INJ IM PRN (14:42)
--- NOTE | 2017-11-14 14:48 | NUR ---
PRN medication; Patient is complaining of lower back pain rated 8/10 on adult pain scale. PRN Toradol 30mg IM given on left buttock area for severe pain. Will continue to monitor patient for effectiveness of medication.
[2017-11-14] MEDS ORDERED: CLON0.1T14 PO (15:12)
[2017-11-14] MEDS ORDERED: GABA-534 PO (15:12)
[2017-11-14] MEDS ORDERED: DICY20TA28 PO (15:12)
[2017-11-14] MEDS ORDERED: HYDR-3895 PO (15:12)
[2017-11-14] MEDS ORDERED: IBUP-1955 PO (15:12)
[2017-11-14] MEDS ORDERED: DOXY100T2 PO (15:12)
[2017-11-14] MEDS ORDERED: FAMO20TA8 PO (15:12)
[2017-11-14] MEDS ORDERED: METH-406 PO (15:12)
[2017-11-14] MEDS ORDERED: BACL20TA PO (15:12)
[2017-11-14] MEDS ORDERED: LACT1CAP57 PO (15:12)
--- NOTE | 2017-11-14 15:34 | NUR ---
Seroquel Reassessment: Pt still reports increased anxiety, evidenced by activity, restlessness
[2017-11-14] MEDS: ONDANSETRON ODT 4 MG TAB.RAPDIS SL PRN (15:44)
--- NOTE | 2017-11-14 15:48 | NUR ---
1544: Pt reports 2 episodes of emesis, 2nd being green, mucous. Zofran 4mg PO given
[2017-11-14 16:00] VITALS: BP 93/44
--- NOTE | 2017-11-14 16:44 | NUR ---
Reassessment for Zofran 4mg PO effective. Pt reports N&V relieved. Pepcid administered since
--- NOTE | 2017-11-14 18:06 | NUR ---
End of Shift Note: 22 y/o F admitted 11/08/17 for medical mgmt withdrawal from Opiates, Benzos and ETOH (reports use of 11 years/5 years attempting to "clean up"). IVF of NS at 125ml/hr completed at 1200 for hydration r/t N&V. C/O nausea and lack of appetite (2 episodes emisis in pm, 2nd described as "green, mucous", s/p prn administrations of Zofran (PO & IM), poor diet with 25% consumed at best, anxious (pt states "I'm supposed to leave for [employer] tomorrow, I don't know how I'm going to make it"). Pt refusing Vistoril scheduled for Seroquel PRN, still reporting increased anxiety. .1 Clonodine given for anxiety at 1845 BP 104/65, P 64. Pt inquiring about PRN meds for anxiety and body aches for evening. Endorsement given to night nurse with added "drug-seeking behavior".
[2017-11-14] MEDS: CLONIDINE HCL 0.1 MG TABLET PO PRN (18:43)
--- NOTE | 2017-11-14 19:06 | NUR ---
START OF SHIFT NOTE: Endorsed 22 year old female completed 5 day Ativan and 5 Day Subutex taper for Benzodiazepines/Xanax, ETOH/Whiskey,Vodka, and Opioid/Heroin withdrawal. She is tolerated well. Patient is alert and oriented x4. Patient noted sad, with poor eye contact. Patient is worried. Patient encouraged to express his feelings. Emotional support provided, and patient 's reassuring. Last COWS=7, CIWA=8 @1600 per day shift report. Patient presented anxious, agitated, nervousness, sweating, tremors, restlessness, severe low back pain, nausea, vomiting x2, abdominal pain, and fatigue, per day shift nurse report. IVF with NS completed @1200 as ordered . IV site with 22 G on Right upper forearm intact and patent, flashed with NS. PIV saline locked, per day shift nurse report. PRN Zofran 4 mg IM given for nausea @0843, PRN Zofran 4 mg PO given for nausea and vomiting @ 1548, PRN Bentyl 20 mg 1 tab PO given for abdominal spasm @0843, PRN Toradol 30 mg/1ml IM administrated for severe back pain @1442, PRN Clonidine 0.1 mg 1 tab PO administrated for anxiety @1843, and PRN Seroquel 25 mg 1 tab PO administrated PO for anxiety @0843, @1425, were effective, per day shift nurse report. Patient remains compliant with treatment, medications, and diet regime. Patient encouraged to express her feelings. Encouraged to fluids intake as tolerated. Patient is scheduled discharging tomorrow, on 11/15/2017 @0800. All needs met. Safety measures in place: Call light within reach, bed is locked and in lowest position, padded bed rails up bilaterally. Patient endorsed by outgoing day shift nurse. Report received. Will continue to monitor closely.
[2017-11-14 20:00] VITALS: BP 106/62
[2017-11-14] MEDS: QUETIAPINE FUMARATE 100 MG TABLET PO SCH (20:46)
--- NOTE | 2017-11-14 21:30 | NUR ---
REMOVAL OF IV IV canula removed with antiseptic techniques, as ordered. Applied pressure with sterile gauze over the exit site over of one minute. No bleeding noted. Patient is tolerated well. Site covered with Ban-Aid. All needs met. Safety measures in place: Call light within reach, bed is locked in lowest position, padded bed rails up bilaterally. Will continue to monitor closely.
--- NOTE | 2017-11-14 22:33 | NUR ---
PRN SEROQUEL (QUETIAPINE FUMARATE 25 MG TABLET)25 MG 1 TABLET PO ADMINISTRATION PRN Seroquel (Quetiapine Fumarate 25mg 1 tablet)25 mg 1 tablet administrated as ordered with full glass of water. Patient tolerated well. All needs met. Safety measures in place: Call light within reach, bed is locked in lowest position, padded bed rails up bilaterally. Will continue to monitor closely.
--- NOTE | 2017-11-14 23:33 | NUR ---
RE-ASSESSMENT Patient is sleeping. RR:14. Respirations are unlabored and even. PRN Seroquel (Quetiapine Fumarate 25mg 1 tablet)25 mg 1 tablet administrated @2233 was effective. All needs met. Safety measures in place: Call light within reach, bed is locked in lowest position, padded bed rails up bilaterally. Will continue to monitor closely.
[2017-11-15] VITALS: BP 106/62
[2017-11-15] MEDS: KETOROLAC TROMETHAMINE 30 MG INJ IM PRN (00:41)
[2017-11-15] MEDS: ONDANSETRON ODT 4 MG TAB.RAPDIS SL PRN (00:41)
--- NOTE | 2017-11-15 00:41 | NUR ---
PRN ZOFRAN 4 MG 1 TAB SL ADMINISTRATION Patient c/o nausea. PRN Zofran 4 mg 1 tab SL administrated as ordered. Patient tolerated well. All needs met. Safety measures in place: Call light within reach, bed is locked in lowest position, padded bed rails up bilaterally. Will continue to monitor closely.
--- NOTE | 2017-11-15 00:41 | NUR ---
PRN TORADOL INJ.(KETOROLAC TROMETHAMINE 30 MG INJ.) 30 MG/1 ML IM ADMINISTRATION PRN TORADOL INJ. 30 MG/1 ML IM ON RIGHT DELTOID MUSCLE ADMINISTRATED FOR D/T LOW BACK PAIN "04/26". PATIENT TOLERATED WELL. ALL NEEDS MET. SAFETY MEASURES ON PLACE: CALL LIGHT WITHIN REACH, BED IS LOCKED, AND IN THE LOWEST POSITION, BED RAILS UP X2. WILL CONTINUE TO MONITOR CLOSELY.
--- NOTE | 2017-11-15 01:11 | NUR ---
RE-ASSESSMENT PATIENT IS SLEEPING. RESPIRATIONS ARE EVEN AND UNLABORED. RR 16. PRN TORADOL INJ. 30 MG/1 ML IM ON LEFT DELTOID MUSCLE ADMINISTRATED FOR D/T LOW BACK PAIN "04/26" @0041 WAS EFFECTIVE. ALL NEEDS MET. SAFETY MEASURES ON PLACE: CALL LIGHT WITHIN REACH, BED IS LOCKED, AND IN THE LOWEST POSITION, BED RAILS UP X2. WILL CONTINUE TO MONITOR CLOSELY.
--- NOTE | 2017-11-15 01:41 | NUR ---
RE-ASSESSMENT Patient is sleeping. RR:14. Respirations are unlabored and even. PRN Zofran 4 mg SL administrated as ordered @0041 was effective. All needs met. Safety measures in place: Call light within reach, bed is locked in lowest position, padded bed rails up bilaterally. Will continue to monitor closely.
[2017-11-15] MEDS: HYDROXYZINE PAMOATE 25 MG CAPSULE PO SCH ×2 (02:00→08:01)
[2017-11-15 04:00] VITALS: BP 92/59
--- NOTE | 2017-11-15 07:18 | NUR ---
END OF SHIFT NOTE Endorsed 22 years old female patient completed 5 day Ativan and 5 Day Subutex taper, which tolerated well. She is remains compliant with treatment, medications, and diet regime. Patient is alert and oriented x4. Patient appears uncombed . Her clothes thrown on floor. Hoarding food and spilled drinks noted around the room. Educated in safety and hygiene care. Encouraged to independently perform hygiene care. Patient noted anxious, worry. Emotional support provided. COWS=11,CIWA=12 @20:00, COWS=9,CIWA=9@0000. Last COWS=7, CIWA=8 @0400. Patient presented with anxiety, agitation, nervousness, fatigue, body aches, stomach cramps, nausea, sweating, and restlessness. PRN Seroquel 25 mg 1 tablet administrated as ordered @2233, PRN Toradol 30 mg/1 ml IM administrated for low back pain "8/10" @0041, PRN Zofran 4 mg SL administrated for nausea @ 0041 were effective. Patient slept 5 hours, intake 1,451ml, voided x2. Safe and calm environment with minimized noises was provided. All needs met. Safety measures in the place: Call light within reach, bed in the lowest position and locked, padded rails up x2. Patient scheduled discharging today, on 11/15/2017 @0800. Patient endorsed to day shift nurse, report given. Will continue to monitor closely.
--- NOTE | 2017-11-15 07:44 | NUR ---
BEGINNING OF SHIFT Patient endorsement report received from operation shift supervisor nurse, all pertinent information discussed. Patient is a 22 year old female with admitting Dx: ETOH/Opiate/BZO withdrawal, and substance use of: marijuana. Patient completed 5 day Subutex and completed 5 day Ativan taper as ordered, and is scheduled to be discharged this morning, will educate patient regarding all discharge instructions. Per operation shift supervisor patient with last ciwa score of: 7, cow score of: 7. received PRN: Seroquel, and Zofran during operation shift supervisor. slept for 5 hours. Fall and seizure precautions observed at all times. Patient received awake, alert and oriented x4, educated regarding plan of care for the day, and medication regimen with good verbal understanding. will continue to monitor closely. safety measures in place.
[2017-11-15 08:00] VITALS: BP 107/60
[2017-11-15] MEDS: MULTIVITAMINS,THERAPEUTIC TABLET PO SCH (08:01)
[2017-11-15] MEDS: GABAPENTIN 300 MG CAPSULE PO SCH (08:01)
[2017-11-15] MEDS: BACLOFEN 20 MG TABLET PO SCH (08:01)
[2017-11-15] MEDS: DICYCLOMINE HCL 20 MG TABLET PO SCH (08:01)
[2017-11-15] MEDS: LACTOBACILLUS RHAMNOSUS GG 1 EACH CAPSULE PO SCH (08:01)
[2017-11-15 08:02] VITALS: BP 107/60
[2017-11-15] MEDS: FOLIC ACID 1 MG TABLET PO SCH (08:02)
[2017-11-15] MEDS: CLONIDINE HCL 0.1 MG TABLET PO PRN (08:02)
[2017-11-15] MEDS: FAMOTIDINE 20 MG TABLET PO SCH (08:02)
[2017-11-15] MEDS: DOXYCYCLINE HYCLATE 100 MG TABLET PO SCH (08:02)
[2017-11-15] MEDS: THIAMINE HCL 100 MG TABLET PO SCH (08:02)
[2017-11-15] MEDS: QUETIAPINE FUMARATE 25 MG TABLET PO PRN (08:02)
[2017-11-15] MEDS: LIDOCAINE 5% PATCH TD SCH (08:04)
--- NOTE | 2017-11-15 08:15 | NUR ---
DISCHARGED Patient off the floor at 0815, prior to discharge patient was educated regarding all discharge instructions with good verbal understanding. Patient vital signs: 107/60 hr: 79. Patient presented with increase anxiety and feeling restlessness. Patient Provided with non pharmacological interventions with no relief. Administered PRN: Clonidine 0.1mg PO as ordered, and administered Seroquel 25mg PO as ordered. All scheduled 0900 medications were administered as ordered, well tolerated, patient with last cow score of: 5, and last ciwa score of: 5. Noted self motivated towards sobriety. discharged to [facility]. patients home mediations, prescriptions and discharge instructions were placed in patients personal duffel bag. patient off the unit at 0815
== END 2017-11-15 08:15 | disposition other institution (70) | DRG 895 ==
LOC: SRC 11-08 22:37
PROVIDERS: ADMIT Internal Medicine; ATTEND Internal Medicine
PROC: HZ41ZZZ Group Counseling for Substance Abuse Treatment, Behavioral (ICD-10-PCS; principal; 2017-11-08)
PROC: HZ2ZZZZ Detoxification Services for Substance Abuse Treatment (ICD-10-PCS; principal; 2017-11-08)
PROC: HZ31ZZZ Individual Counseling for Substance Abuse Treatment, Behavioral (ICD-10-PCS; 2017-11-10)
DX: F10.239 Alcohol dependence with withdrawal, unspecified (principal); D69.6 Thrombocytopenia, unspecified; I15.9 Secondary hypertension, unspecified; E87.1 Hypo-osmolality and hyponatremia; L02.413 Cutaneous abscess of right upper limb; F11.23 Opioid dependence with withdrawal; F13.239 Sedative, hypnotic or anxiolytic dependence with withdrawal, unspecified; E83.42 Hypomagnesemia; Y90.9 Presence of alcohol in blood, level not specified; Z81.1 Family history of alcohol abuse and dependence; G47.00 Insomnia, unspecified; F43.10 Post-traumatic stress disorder, unspecified; F32.9 Major depressive disorder, single episode, unspecified; Z91.89 Other specified personal risk factors, not elsewhere classified; Z79.899 Other long term (current) drug therapy; Z91.5 Personal history of self-harm; E88.09 Other disorders of plasma-protein metabolism, not elsewhere classified; Z59.0 Homelessness; Z59.1 Inadequate housing; B19.20 Unspecified viral hepatitis C without hepatic coma; F17.210 Nicotine dependence, cigarettes, uncomplicated
CPT/HCPCS: 36415; 70030-TC; 80307; 80349; 80361; 83735; 84100; 84703; 85025; 86580; 86592; 86705; 86803; 87340; 87806; 93005; A4663; C9113; G0480; J1885; J2405; J3490; J7030; Q0162; Q0163